=== PATIENT | male | born 1950 | race Caucasian/White ===

== ENCOUNTER → 2018-12-09 | Outpatient (CLI) | payer MEDICARE, OTHER ==
--- NOTE | 2018-12-09 12:37 | Diagnostic Imaging Report ---
PROCEDURE: CT abdomen and pelvis without contrast. TECHNIQUE: Multiple contiguous axial images were obtained through the abdomen and pelvis without the use of intravenous contrast. Auto Exposure Controls were utilized during the CT exam to meet ALARA standards for radiation dose reduction. INDICATION: Painless hematuria. FINDINGS: The heart size is normal. The lung bases are clear. There are some coronary artery calcifications. The liver is normal in size without focal lesions. Gallbladder is surgically absent. There is no biliary ductal dilatation. There is a small hiatal hernia. Spleen is normal. There is a punctate calcification in the head of the pancreas. The adrenal glands are unremarkable. The kidneys are normal in appearance. Specifically, there is no mass or calculi. There is no evidence of obstructive uropathy. There is enlargement of the prostate which measures up to 6.5 cm transverse x 6 cm AP. Bladder is grossly unremarkable. The aorta is nonaneurysmal. The bowel gas pattern is nonspecific. The appendix is normal. No free air. There is no ascites. There are no focal inflammatory changes. There is no pelvic mass or adenopathy. There are degenerative changes in the spine. IMPRESSION: Coronary artery calcification. Enlargement of the prostate. No other acute abnormality in the abdomen or pelvis. Specifically, kidneys and bladder are grossly unremarkable. Evaluation is somewhat limited, however, as this is a noncontrast examination. Dictated by: Dictated on workstation # [id number]
== END ==
LOC: RAD FS 09:20
PROVIDERS: ATTEND Urology
DX: I25.10 Atherosclerotic heart disease of native coronary artery without angina pectoris (principal); N40.0 Benign prostatic hyperplasia without lower urinary tract symptoms; R31.0 Gross hematuria; Z90.49 Acquired absence of other specified parts of digestive tract
CPT/HCPCS: 74176

== ENCOUNTER → 2020-03-14 | Outpatient (CLI) | payer MEDICARE, OTHER ==
--- NOTE | 2020-03-14 09:04 | Diagnostic Imaging Report ---
INDICATION: Pain status post injury. COMPARISON: None. FINDINGS: 3 views of the left knee joint demonstrate no acute fracture or dislocation. No focal osseous lesions are seen. Mild osteoarthritic changes are noted. No significant joint effusion is seen. The surrounding soft tissue structures are unremarkable. There are no radiopaque foreign bodies. IMPRESSION: 1. No acute fractures or dislocations of the left knee joint. Dictated by: Dictated on workstation # [id number]
== END ==
LOC: RAD FS 08:07
PROVIDERS: ATTEND Nurse Practitioner
DX: M25.562 Pain in left knee (principal); Z87.828 Personal history of other (healed) physical injury and trauma
CPT/HCPCS: 73562

== ENCOUNTER → 2020-04-04 | Outpatient (CLI) | payer MEDICARE, OTHER ==
--- NOTE | 2020-04-04 11:06 | Diagnostic Imaging Report ---
PROCEDURE: MRI left joint lower extremity without contrast. TECHNIQUE: Multiplanar, multisequence non contrast-enhanced MRI of the left knee was accomplished. INDICATION: Left knee pain. COMPARISON: Left knee radiographs of 03/14/2020. FINDINGS: Medial compartment: There is a complete radial tear in the posterior horn of the medial meniscus at its root insertion. Additionally, there is free edge tearing and truncation in the body. Full-thickness chondral fissuring and delamination is present within the central weightbearing aspect of the medial femoral condyle. Subchondral bone marrow edema in the medial tibial plateau is likely due to overlying articular cartilage loss as there is no fracture line appreciated. Lateral compartment: The lateral meniscus has minimal degenerative free edge fraying but is otherwise intact. There is some low-grade partial-thickness chondral fibrillation in the weightbearing aspect of the lateral compartment, and a superimposed focus of full-thickness chondral fissuring in the central weightbearing aspect of the lateral tibial plateau. Patellofemoral compartment: Full-thickness articular cartilage loss is present throughout the majority of the patella. The trochlea also has full-thickness articular cartilage loss in the lateral aspect. Tendons and ligaments: The ACL and PCL are intact. The medial and lateral collateral ligamentous complexes are normal. Extensor mechanism is normal. Bones: No fracture or concerning focal osseous lesion. Soft tissues: Small knee joint effusion. There is also a small Duarte's cyst with free fluid tracking along the superficial fascia of the gastrocnemius indicative of a partial rupture. IMPRESSION: 1. 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 2. Complete radial tear in the posterior root of the medial meniscus. 3. Small partially ruptured Duarte's cyst. Dictated by: Dictated on workstation # [id number]
== END ==
LOC: RAD 08:14
PROVIDERS: ATTEND Nurse Practitioner
DX: S83.242A Other tear of medial meniscus, current injury, left knee, initial encounter (principal); X58.XXXA Exposure to other specified factors, initial encounter; M71.22 Synovial cyst of popliteal space [Baker], left knee; M17.12 Unilateral primary osteoarthritis, left knee
CPT/HCPCS: 73721

== ENCOUNTER 2020-04-23 10:00 | Outpatient (CLI) | payer MEDICARE, OTHER ==
[~2020-04-23] VITALS: Ht 185.4 cm; Wt 118.4 kg
[~2020-04-23 10:00] MED LIST: ATOR40TA70 PO; FINA5TAB6 PO; FLUO20TA28 PO; HYDR25TA4 PO; MTP25TSR PO; RIVA20TA PO; TMSL.4C PO
[2020-04-24] MEDS ORDERED: HYDR-3817 PO (10:56)
== END 2020-04-23 10:05 | disposition home or self-care (01) ==
LOC: PREOP 10:00
PROVIDERS: ATTEND Orthopaedic Surgery
DX: Z01.818 Encounter for other preprocedural examination (principal)

== ENCOUNTER 2020-04-24 07:56 | Day surgery (SDC) | payer MEDICARE, OTHER ==
--- NOTE | 2020-04-19 13:21 | HISTORY AND PHYSICAL ---
DATE OF SERVICE: This will be for outpatient surgery. Date of service, date of surgery, date of treatment will be 04/24/2020 for left knee arthroscopy. HISTORY OF PRESENT ILLNESS: The patient is a 69-year-old gentleman with a known medial meniscus tear of his left knee. He does have some underlying arthritis, but reports difficulty with climbing, twisting and kneeling. He has tried bracing, anti-inflammatories without relief. Due to functional impairment and failure to improve with conservative measures, the patient elected to proceed with surgical intervention. He understands that arthroscopy will not cure his arthritic symptoms. REVIEW OF SYSTEMS: No chest pain, no shortness of breath, no dysuria. PAST MEDICAL HISTORY: Hypercholesterolemia, hypertension. PAST SURGICAL HISTORY: None. SOCIAL HISTORY: Noncontributory. The patient denies alcohol, tobacco use. FAMILY HISTORY: Noncontributory. PRIMARY CARE PROVIDER: Dr. Sanders. MEDICATIONS: Atorvastatin, hydrochlorothiazide, fluoxetine, finasteride, metoprolol, Xarelto, ibuprofen. ALLERGIES: No known drug allergies. RADIOGRAPHS: As above. PHYSICAL EXAMINATION: GENERAL: The patient is well-developed, well-nourished, in no acute distress. HEENT: Normocephalic, atraumatic. Pupils equal, round, reactive to light. Oropharynx is clear. NECK: Supple, no lymphadenopathy. LUNGS: Clear to auscultation bilaterally. HEART: Regular rate and rhythm. ABDOMEN: Soft, nontender, nondistended. EXTREMITIES: The left knee is tender along his medial joint line, has pain posteriorly with hyperflexion. Range of motion 0/2/135. He ambulates with an antalgic gait. 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 PLAN: Left knee arthroscopy, chondroplasty, partial medial meniscectomy. Risks, benefits, options, ramifications and recovery were discussed at length with the patient. He understands and wishes to proceed. Job ID: [id number] DocumentID: [id number] Dictated Date: 04/19/2020 12:30:27 Reservation Manager Date: 04/19/2020 13:20:28 Dictated By: MELISSA TALLEY MD
[2020-04-24] VITALS (12 sets, daily range): BP systolic 98–158; BP diastolic 51–90
[~2020-04-24] VITALS: Ht 185.4 cm; Wt 118.4 kg
[~2020-04-24 07:56] MED LIST changes: +HYDROcodone/APAP 7.5 MG/325 MG (LORTAB, LORCET PLUS) TABLET PO PRN; +LACTATED RINGERS 1,000 ML IV PRN
--- NOTE | 2020-04-24 08:12 | Progress Note-Pre Operative ---
Pre-Operative Progress Note H&P Reviewed The H&P was reviewed, patient examined and no changes noted. Date Seen by Provider: Apr 24, 2020 Time Seen by Provider: 08:11 Date H&P Reviewed: Apr 24, 2020 Time H&P Reviewed: 08:11 Pre-Operative Diagnosis: left knee medial meniscus tear and chondromalacia MELISSA TALLEY MD Apr 24, 2020 08:12
--- NOTE | 2020-04-24 08:13 | Progress Note-Post Operative ---
Post-Operative Progess Note Surgeon (s)/History Department Chair (s) Surgeon MELISSA TALLEY MD History Department Chair: Fernando Leonard Pre-Operative Diagnosis left knee medial meniscus tear and chondromalacia Post-Operative Diagnosis left knee medial meniscus tear and chondromalacia of the medial femoral condyle and the lateral tibial plateau Procedure & Operative Findings Date of Procedure 04/24/20 Procedure Performed/Findings left knee arthroscopic partial medial meniscectomy and chondroplasty of the medial femoral condyle and lateral tibial plateau Anesthesia Type GETA Estimated Blood Loss Estimated blood loss (mL): minimal Specimens/Packing Specimens Removed none Packing: none MELISSA TALLEY MD Apr 24, 2020 08:13
[2020-04-24] MEDS ORDERED: LACTATED RINGERS 1,000 ML IV PRN (08:21)
[2020-04-24] MEDS ORDERED: ceFAZolin INJECTION 1,000 MG in WATER (STERILE) FOR INJECTION 10 ML IV ONE (08:30)
[2020-04-24] MEDS ORDERED: proPOfol 200 MG/20 ML (DIPRIVAN) VIAL IV ONE ×2 (08:45→09:32)
[2020-04-24] MEDS ORDERED: LIDOCAINE PF 2% 5 ML (XYLOCAINE) VIAL ONE (08:45)
[2020-04-24] MEDS ORDERED: SEVOFLURANE (ULTANE) 15 ML INHAL SOLN ONE ×3 (08:45→09:31)
[2020-04-24] MEDS ORDERED: fentaNYL INJECTION 100 MCG/2 ML AMP ONE (08:45)
[2020-04-24] MEDS ORDERED: MIDAZOLAM 2 MG/2 ML (VERSED) VIAL ONE (08:46)
[2020-04-24] MEDS ORDERED: BUPIVACAINE 0.25% 30 ML (SENSORCAINE) VIAL ONE (09:08)
[2020-04-24] MEDS ORDERED: morphine PF (DURAMORPH) 10 MG/10 ML AMP ONE (09:08)
[2020-04-24] MEDS ORDERED: ONDANSETRON 4 MG/2 ML (SDV) Z0FRAN ONE (09:31)
[2020-04-24] MEDS ORDERED: HYDR-3817 PO (10:56)
--- NOTE | 2020-04-24 11:44 | Physical Therapy Ortho Eval ---
PT Orthopedic Evaluation Type of Surgery Knee Scope left side Prior Level of Function Current Living Status: Spouse Locomotion (Upon Admit): Independent Subjective Entry Into Home: Stairs Without Railing Steps Into Home: 2 Objective Objective Patient in bed pre tx, agrees to PT, has no complaints of pain at rest. Motor Control Motor Control: Motor Control WNL ROM left knee extension +2 degrees and flexion 90 degrees Transfer Transfers (B, C, W/C) (FIM): 4 Gait Summary/Comments Patient ambulated 200' with a rolling walker with SBA, gait is antalgic, slightly flexed left knee, good step through and heel strike. Patient also went up an down 1 step using a rolling walker and CGA, cues for foot placement. Treatment Rendered Treatment: Therapeutic Exercises, Gait Train, Step Train Exercise Instruction: Quad Sets, Heel Slides, Ankle Pumps Assessment/Goals Goal Time Frame: 1 Visit Understands HEP: Yes Safe Ambulation: Yes Plan Treatment Plan: Discharge PT/Family Agrees to Plan: Yes Time Time In: 1120 Time Out: 1136 Total Billed Treatment Time: 16 Billed Treatment Time 1 visit JUDITH 16' ISABEL BRANTLEY PT Apr 24, 2020 11:44
--- NOTE | 2020-04-24 19:47 | OPERATIVE REPORT ---
DATE OF SERVICE: 04/24/2020 PREOPERATIVE DIAGNOSES: 1. Left knee medial meniscus tear. 2. Left knee chondromalacia of the medial femoral condyle. POSTOPERATIVE DIAGNOSES: 1. Left knee medial meniscus tear. 2. Left knee chondromalacia of the medial femoral condyle. 3. Left knee chondromalacia of the lateral tibial plateau. PROCEDURES: 1. Left knee arthroscopic partial medial meniscectomy. 2. Left knee arthroscopic chondroplasty of the medial femoral condyle. 3. Left knee arthroscopic chondroplasty of the lateral tibial plateau. SURGEON: Augustine Talley MD DIRECTOR OF SALES: Fernando Leonard, who assisted throughout the procedure and closed the incisions. ANESTHESIA: General endotracheal by Ubaldo Robert CRNA. TOURNIQUET TIME: Not applicable. ESTIMATED BLOOD LOSS: Minimal. DRAINS: None. COMPLICATIONS: None. POSTOPERATIVE PLAN: Routine arthroscopy protocol. The patient was transferred to the recovery room awake and in stable condition. STATEMENT OF MEDICAL NECESSITY: The patient is a 69-year-old gentleman who injured his left knee when he twisted, he felt and heard a pop. Since then has had medial knee pain with catching and locking. Radiographs revealed significant medial and patellofemoral joint space narrowing. The patient understood that arthroscopy could help with his mechanical symptoms, but would not necessarily alleviate any of his arthritic symptoms, but due to functional impairment and failure to improve with conservative measures, the patient elected to proceed with surgical intervention. Examination under anesthesia revealed range of motion of 0/2/130 with negative Lisa, negative anterior and posterior drawer. No varus valgus laxity, negative pivot shift. Arthroscopic findings, the patella demonstrated grade IV chondral loss diffusely over the inferior half of the patella and trochlea demonstrated grade IV chondral loss throughout the groove. The medial and lateral gutters were clear. Lateral compartment demonstrated grade III chondral flaps of the central portion of the tibial plateau in a 10 x 10 area with no significant meniscal pathology was noted. The ACL and PCL were intact. The medial compartment demonstrated a grade III to IV chondral flap centrally in a 20 x 20 area with the femoral condyle. The tibial plateau demonstrated diffuse grade II chondral loss with no unstable chondral flaps. The posterior horn of the medial meniscus demonstrated a horizontal cleavage tear involving approximately 1/3 of the posterior horn of the meniscus. DESCRIPTION OF PROCEDURE: After risks and benefits of procedure were discussed and questions were answered, informed consent was signed and placed on chart, the operative site was confirmed in the preoperative holding area initialed by the surgeon. The patient was then transferred to the operating room and after adequate levels of general endotracheal anesthetic were obtained, a timeout was called, confirming the operative site. Examination under anesthesia was performed with above findings noted. The left lower extremity was prepped and draped in the usual sterile fashion. The knee joint was injected with 60 mL of fluid and standard inferolateral portal was placed with the arthroscope under direct visualization and inferior medial portal was created, the menisci and cruciates carefully probed with the above findings noted. Then, stable chondral flaps on the lateral tibial plateau were debrided with a shaver back to a stable edge. Medial compartment where the unstable chondral flaps on the medial femoral condyle were debrided with shaver back to a stable edge and the posterior horn of the medial meniscus was debrided with a biter, and shaver back to a stable edge. This was carefully probed with no further tearing or instability noted. The knee was copiously irrigated and port sites were closed with 4-0 nylon in septic fashion. Knee was injected with Duramorph. Port sites were infiltrated with plain Marcaine and soft dressing was applied and the patient was transferred to the recovery room awake and in stable condition. Job ID: [id number] DocumentID: [id number] Dictated Date: 04/24/2020 09:56:40 Fireperson Date: 04/24/2020 19:46:12 Dictated By: AUGUSTINE TALLEY MD
== END 2020-04-24 11:50 | disposition home or self-care (01) ==
LOC: SDC 07:56
PROVIDERS: ATTEND Orthopaedic Surgery
DX: S83.242A Other tear of medial meniscus, current injury, left knee, initial encounter (principal); X50.1XXA Overexertion from prolonged static or awkward postures, initial encounter; M94.262 Chondromalacia, left knee; I10 Essential (primary) hypertension; E78.00 Pure hypercholesterolemia, unspecified; I48.0 Paroxysmal atrial fibrillation; E78.2 Mixed hyperlipidemia; F41.1 Generalized anxiety disorder; K21.9 Gastro-esophageal reflux disease without esophagitis; E66.9 Obesity, unspecified; Z68.34 Body mass index [BMI] 34.0-34.9, adult; Z79.01 Long term (current) use of anticoagulants; Z79.899 Other long term (current) drug therapy; Z11.2 Encounter for screening for other bacterial diseases
CPT/HCPCS: 87081

== ENCOUNTER → 2021-05-26 | Outpatient (CLI) | payer MEDICARE, OTHER ==
[~2021-05-26] MED LIST changes: +HYDR-3817 PO; -HYDROcodone/APAP 7.5 MG/325 MG (LORTAB, LORCET PLUS) TABLET PO PRN; -LACTATED RINGERS 1,000 ML IV PRN
--- NOTE | 2021-05-26 16:50 | Diagnostic Imaging Report ---
INDICATION: Palpable lump left breast. COMPARISON: No prior mammograms are available for comparison. TECHNIQUE: 2D and 3D bilateral diagnostic mammography was performed with CAD. A BB marker was placed at the area of palpable abnormality in the upper and outer retroareolar left breast. FINDINGS: There is some mild gynecomastia in the retroareolar left breast. No mass or malignant-appearing microcalcifications are seen. The axillae are unremarkable. IMPRESSION: 1. Mild gynecomastia in the retroareolar left breast. 2. No abnormality identified at the area of palpable abnormality. Ultrasound of this area is recommended and will be performed today. ACR BI-RADS Category 0: Incomplete. (Needs additional imaging evaluation). Result letter will be mailed to the patient. Note: At least 10% of breast cancer is not imaged by mammography. Dictated by: Dictated on workstation # [id number]
--- NOTE | 2021-05-26 19:58 | Diagnostic Imaging Report ---
INDICATION: Palpable lump, left breast. CORRELATION is made with diagnostic mammogram earlier the same day. Sonographic interrogation of the area of lump in the retroareolar slightly upper outer left breast was performed. There is some ill-defined hypoechogenicity in the retroareolar left breast consistent with gynecomastia. This correlates with the findings on mammogram. No masses are seen. No fluid collection is identified. IMPRESSION: BI-RADS Category 2. Features suggestive of gynecomastia. No other abnormality is detected. ACR BI-RADS Category 2: Benign findings. Result letter will be mailed to the patient. Note: At least 10% of breast cancer is not imaged by mammography. Dictated by: Dictated on workstation # [id number]
== END ==
LOC: RAD 14:15
PROVIDERS: ATTEND Registered Nurse Emergency
DX: N62 Hypertrophy of breast (principal)
CPT/HCPCS: 76642; 77065; G0279

== ENCOUNTER → 2021-09-23 | Outpatient (CLI) | payer MEDICARE, OTHER | END | disposition home or self-care (01) | LOC: PREOP 05:33 | PROVIDERS: ATTEND Surgery | DX: Z01.818 Encounter for other preprocedural examination (principal) ==

== ENCOUNTER → 2022-06-15 | Outpatient (CLI) | payer MEDICARE, OTHER ==
--- NOTE | 2022-06-15 14:18 | Diagnostic Imaging Report ---
Indication: Twisting injury with right knee pain. No relevant comparison. Findings: Lateral view shows likely small suprapatellar joint effusion. There are arthritic changes involving medial greater than lateral tibiofemoral compartments with more pronounced patellofemoral arthritis. Vascular calcifications chronic. There was no loose body and no fracture apparent. Impression: Probable joint effusion, arthritis and atherosclerosis, no fracture however. Dictated by: Dictated on workstation # [id number]
== END ==
LOC: RAD FS 11:29
PROVIDERS: ATTEND Nurse Practitioner
DX: S89.91XA Unspecified injury of right lower leg, initial encounter (principal); M17.11 Unilateral primary osteoarthritis, right knee; X58.XXXA Exposure to other specified factors, initial encounter
CPT/HCPCS: 73562

== ENCOUNTER 2022-09-04 09:38 | Emergency (ER) | payer MEDICARE, OTHER ==
[~2022-09-04] VITALS: Ht 180.3 cm; Wt 113.4 kg
[2022-09-04] MEDS ORDERED: NS IV 500 ML 500 ML IV ONE (10:00)
[2022-09-04 10:11] LABS: BASOPHILS # (AUTO) 0.1 10^3/uL (0.0-0.1); BASOPHILS % (AUTO) 1 % (0-10); EOSINOPHILS # (AUTO) 0.2 10^3/uL (0.0-0.3); EOSINOPHILS % (AUTO) 3 % (0-10); HEMATOCRIT 43 % (40-54); HEMOGLOBIN 14.9 g/dL (13.3-17.7); LYMPHOCYTES # (AUTO) 1.6 10^3/uL (1.0-4.0); LYMPHOCYTES % (AUTO) 30 % (12-44); MEAN CORPUSCULAR HEMOGLOBIN 31 pg (25-34); MEAN CORPUSCULAR HGB CONC 35 g/dL (32-36); MEAN CORPUSCULAR VOLUME 89 fL (80-99); MEAN PLATELET VOLUME 10.8 fL (9.0-12.2); MONOCYTES # (AUTO) 0.6 10^3/uL (0.0-1.0); MONOCYTES % (AUTO) 10 % (0-12); NEUTROPHILS % (AUTO) 55 % (42-75); PLATELET COUNT 154 10^3/uL (130-400); WHITE BLOOD COUNT 5.4 10^3/uL (4.3-11.0)
[2022-09-04 10:37] LABS: ALBUMIN 4.4 GM/DL (3.2-4.5); BILIRUBIN,TOTAL 0.3 MG/DL (0.1-1.0); CALCIUM 9.4 MG/DL (8.5-10.1); CREATININE SERUM 0.65 MG/DL (0.60-1.30); POTASSIUM 4.2 MMOL/L (3.6-5.0)
--- NOTE | 2022-09-04 11:03 | ED Syncope ---
General Chief Complaint: Dizziness/Syncope Stated Complaint: SYNCOPAL EPISODE Nursing Triage Note: Patient states he was in the radiology department for an outpatient xray and became lightheaded after standing up off the xray table. He denies any pain, states he is nauseous. He states he has not had anything to eat or drink yet today. Source of Information: Patient Exam Limitations: No Limitations History of Present Illness Date Seen by Provider: Sep 04, 2022 Time Seen by Provider: 09:54 Initial Comments This is 71-year-old gentleman presents to the emergency room from outpatient x- ray where he was obtaining x-rays of his hip. Upon standing from the x-ray table he had a near syncopal episode. He describes prior episodes of lesser intensity. He notes they are sometimes triggered when he looks up or turns his head. He notes he did not eat or drink this morning before going to his appointment. In reviewing his medical history, he notes that atenolol was recently decreased due to problems with bradycardia. Patient also notes he intermittently has a tremor. He has history of paroxysmal A. fib but is in sinus rhythm at this time. He denies any prodrome of chest pain or palpitations prior to the episode. He has discussed obtaining a loop recorder with his reliability technologist but has not obtained it yet. Patient and his are the primary historians. Allergies and Home Medications Allergies Coded Allergies: No Known Drug Allergies (Unverified , 04/23/20) Patient Home Medication List Home Medication List Reviewed: Yes Atorvastatin Calcium (Atorvastatin Calcium) 40 Mg Tablet, 40 MG PO DAILY, (Reported) Entered as Reported by: STEVE ARCEO on 04/23/20 1000 Finasteride (Finasteride) 5 Mg Tablet, 5 MG PO DAILY, (Reported) Entered as Reported by: STEVE ARCEO on 04/23/20 1000 Fluoxetine HCl (Fluoxetine HCl) 20 Mg Tablet, 20 MG PO DAILY, (Reported) Entered as Reported by: STEVE ARCEO on 04/23/20 1000 Hydrochlorothiazide (Hydrochlorothiazide) 25 Mg Tablet, 25 MG PO DAILY, (Reported) Entered as Reported by: STEVE ARCEO on 04/23/20 1000 Hydrocodone/Acetaminophen (Hydrocodone-Acetamin 7.5-325) 1 Each Tablet, 1 EACH PO Q4H Prescribed by: AVIS HARTLEY on 04/24/20 1056 Metoprolol Succinate (Metoprolol Succinate) 25 Mg Tab.er.24h, 25 MG PO BID, (Reported) Entered as Reported by: STEVE ARCEO on 04/23/20 1000 Rivaroxaban (Xarelto) 20 Mg Tablet, 20 MG PO DAILY, (Reported) Entered as Reported by: STEVE ARCEO on 04/23/20 1000 Tamsulosin HCl (Flomax) 0.4 Mg Cap, 0.4 MG PO DAILY, (Reported) Entered as Reported by: STEVE ARCEO on 04/23/20 1000 Review of Systems Constitutional: no symptoms reported EENTM: no symptoms reported Respiratory: no symptoms reported Cardiovascular: see HPI Gastrointestinal: no symptoms reported Genitourinary: no symptoms reported Musculoskeletal: no symptoms reported Skin: no symptoms reported Psychiatric/Neurological: See HPI Past Njusrfm-Urqtqa-Njjpdd Hx Patient Social History Tobacco Use?: No Substance use?: No Alcohol Use?: No Pt feels they are or have been: No Seasonal Allergies Seasonal Allergies: Yes Past Medical History Surgery/Hospitalization HX: vertigo, hypertension, a-fib, tremor Surgeries: Yes Tonsillectomy Respiratory: No Cardiac: Yes (paroxysmal [id number]) Atrial Fibrillation (Paroxysmal), High Cholesterol, Hypertension Neurological: Yes (Tremor) Genitourinary: No Gastrointestinal: No Musculoskeletal: Yes Endocrine: No HEENT: No Cancer: No Psychosocial: No Integumentary: No Blood Disorders: No Physical Exam Vital Signs Vital Signs - First Documented 09/04/22 09:40 Temp 36.5 Pulse 68 Resp 16 B/P (MAP) 183/89 (120) Pulse Ox 97 O2 Delivery Room Air Capillary Refill : Less Than 3 Seconds Height, Weight, BMI Height: '" Weight: lbs. oz. kg; 34.00 BMI Method: General Appearance: No Apparent Distress, WD/WN HEENT: PERRL/EOMI, Normal ENT Inspection Neck: Normal Inspection; No Carotid Bruit, No JVD Cardiovascular: Regular Rate, Rhythm, No Edema, No Murmur Respiratory: Lungs Clear, Normal Breath Sounds, No Accessory Muscle Use Gastrointestinal: Non Tender, Soft Extremities: Normal Inspection, No Pedal Edema Neurologic/Psychiatric: Alert, Oriented x3, No Motor/Sensory Deficits, Normal Mood/Affect Cranial Nerves: Normal Hearing, Normal Speech, PERRL Motor/Sensory: No Motor Deficit, No Sensory Deficit Skin: Normal Color, Warm/Dry Progress/Results/Core Measures Results/Orders Lab Results Laboratory Tests Test 09/04/22 10:04 Range/Units White Blood Count 5.4 4.3-11.0 10^3/uL Red Blood Count 4.81 4.30-5.52 10^6/uL Hemoglobin 14.9 13.3-17.7 g/dL Hematocrit 43 40-54 % Mean Corpuscular Volume 89 80-99 fL Mean Corpuscular Hemoglobin 31 25-34 pg Mean Corpuscular Hemoglobin Concent 35 32-36 g/dL Red Cell Distribution Width 11.9 10.0-14.5 % Platelet Count 154 130-400 10^3/uL Mean Platelet Volume 10.8 9.0-12.2 fL Immature Granulocyte % (Auto) 0 % Neutrophils (%) (Auto) 55 42-75 % Lymphocytes (%) (Auto) 30 12-44 % Monocytes (%) (Auto) 10 0-12 % Eosinophils (%) (Auto) 3 0-10 % Basophils (%) (Auto) 1 0-10 % Neutrophils # (Auto) 3.0 1.8-7.8 10^3/uL Lymphocytes # (Auto) 1.6 1.0-4.0 10^3/uL Monocytes # (Auto) 0.6 0.0-1.0 10^3/uL Eosinophils # (Auto) 0.2 0.0-0.3 10^3/uL Basophils # (Auto) 0.1 0.0-0.1 10^3/uL Immature Granulocyte # (Auto) 0.0 0.0-0.1 10^3/uL Sodium Level 140 135-145 MMOL/L Potassium Level 4.2 3.6-5.0 MMOL/L Chloride Level 105 98-107 MMOL/L Carbon Dioxide Level 25 21-32 MMOL/L Anion Gap 10 5-14 MMOL/L Blood Urea Nitrogen 16 7-18 MG/DL Creatinine 0.65 0.60-1.30 MG/DL Estimat Glomerular Filtration Rate 100 BUN/Creatinine Ratio 25 Glucose Level 127 H 70-105 MG/DL Calcium Level 9.4 8.5-10.1 MG/DL Corrected Calcium 9.1 8.5-10.1 MG/DL Magnesium Level 2.0 1.6-2.4 MG/DL Total Bilirubin 0.3 0.1-1.0 MG/DL Aspartate Amino Transf (AST/SGOT) 22 5-34 U/L Alanine Aminotransferase (ALT/SGPT) 20 0-55 U/L Alkaline Phosphatase 85 40-136 U/L Total Protein 7.0 6.4-8.2 GM/DL Albumin 4.4 3.2-4.5 GM/DL My Orders Orders - ARCELIA CAMPO MD Ed Iv/Invasive Line Start (09/04/22 09:54) Ekg Tracing (09/04/22 09:54) Monitor-Rhythm Ecg Trace Only (09/04/22 09:54) Cbc With Automated Diff (09/04/22 09:54) Comprehensive Metabolic Panel (09/04/22 09:54) Magnesium (09/04/22 09:54) Ns Iv 500 Ml (Sodium Chloride 0.9%) (09/04/22 10:00) Medications Given in ED Vital Signs/I&O 09/04/22 09/04/22 09:40 11:13 Temp 36.5 Pulse 68 67 Resp 16 16 B/P (MAP) 183/89 (120) 146/79 Pulse Ox 97 94 O2 Delivery Room Air Room Air Blood Pressure Mean: 120 Progress Progress Note : Progress Note Work-up including CBC and CMP and EKG was relatively unremarkable. All of the studies were reviewed by me. Patient was noted to have orthostatic changes. Orthostatic blood pressures were as follows: Lying: Heart rate 67, BP 183/89 Sitting: Heart rate 71, BP 172/83 Standing: Heart rate 73, BP 141/76 Patient had a drop of greater than 20 and the systolic blood pressure. He also lacked a compensatory elevation in heart rate. Blood pressure also appears to be poorly controlled. I have advised that he discuss all of these things with his primary care provider and reliability technologist. Additionally, I stressed the importance of obtaining carotid imaging. I contacted Dr. Bonoe's office to request that they obtain a carotid ultrasound on an outpatient basis. Ultrasound was not available through this ER today. Clinic staff called back and stated they would be scheduling the carotid ultrasound with the patient in the next 2 business days. Patient was hydrated with a 500 mL normal saline bolus. He was feeling improved. See discharge instructions for further discussion. Initial ECG Impression Date: Sep 04, 2022 Initial ECG Impression Time: 09:57 Initial ECG Rate: 61 Comment Sinus rhythm with first-degree A-V block with AK interval of 212. No axis deviation. No ST elevation or depression. Departure Impression Primary Impression: Near syncope Additional Impressions: Light-headed feeling Hypertension Qualified Codes: I10 - Essential (primary) hypertension Disposition: 01 HOME, SELF-CARE Condition: Improved Departure-Patient Inst. Decision time for Depature: 11:03 Referrals: JEMAL BOONE MD (PCP) Primary Care Physician Patient Instructions: High Blood Pressure ED, Near Fainting (DC) Add. Discharge Instructions: Use abundance of caution when getting up from a lying or sitting position. Take your time. If you feel lightheaded, sit or lay back down immediately. Dr. Tony contacted Dr. Boone's office. They will be scheduling a carotid ultrasound appointment for you. Expect a call today or Wednesday for that appointment time. Please call their office if you do not hear back by end of day Wednesday. Please also schedule an appointment to be seen in the clinic and to have your blood pressure checked and managed. Please also contact your reliability technologist office is soon as possible. I suggest you discuss the possibility of continuous cardiac monitoring with a loop recorder or alternative device to ensure you are lightheaded episodes are not being caused by heart rhythm issues. Drink plenty of clear liquids to stay well-hydrated and eat a well-balanced diet. Return to the ER if you have worsening of symptoms despite following these instructions. All discharge instructions reviewed with patient and/or family. Voiced understanding. Copy Copies To 1: JEMAL BOONE MD, JOSHUA T MD Sep 04, 2022 11:03
[2022-09-04 11:13] VITALS: BP 146/79
== END 2022-09-04 11:15 | disposition home or self-care (01) ==
LOC: EDUNIT# 09:38 → ER FS 09:39
DX: R55 Syncope and collapse (principal); I10 Essential (primary) hypertension
CPT/HCPCS: 36415; 80053; 83735; 85025; 93041

== ENCOUNTER → 2022-09-04 | Outpatient (CLI) | payer MEDICARE, OTHER ==
--- NOTE | 2022-09-04 13:26 | Diagnostic Imaging Report ---
INDICATION: Fall. Back pain. COMPARISON: None FINDINGS: Frontal and lateral views of the lumbar spine were obtained. Alignment and vertebral heights are maintained. There is no fracture or destructive process. Moderate multilevel degenerative disease is noted in the lumbar spine. Limited views of the abdomen demonstrate nonobstructive bowel gas pattern. IMPRESSION: 1. No acute fracture or dislocation of the lumbar spine. 2. Moderate multilevel degenerative changes. Dictated by: Dictated on workstation # [id number]
--- NOTE | 2022-09-04 13:29 | Diagnostic Imaging Report ---
INDICATION: Chronic low back pain. Hip pain. COMPARISON: None FINDINGS: A single frontal view of the pelvis was performed. There is no radiographic evidence of acute fracture or dislocation. Pubic symphysis is within normal limits. SI joints are symmetric. Proximal femurs are intact, bilaterally. There is moderate asymmetric narrowing of the right femoral acetabular joint space. Hip joints are otherwise maintained on this single frontal view. Remainder of the bony pelvis is intact as well. No unexpected radiopaque foreign bodies are seen. Included small bowel loops are nondistended. IMPRESSION: 1. No radiographic evidence of acute fracture or dislocation of the bony pelvis. 2. Moderate joint space narrowing of the right hip. Dictated by: Dictated on workstation # [id number]
== END ==
LOC: RAD FS 08:19
PROVIDERS: ATTEND Nurse Practitioner
DX: M51.36 Other intervertebral disc degeneration, lumbar region (principal); M16.11 Unilateral primary osteoarthritis, right hip
CPT/HCPCS: 72100; 72170